=== PATIENT | male | born 1980 | race African-American/Black ===

== ENCOUNTER 2017-08-28 08:43 | Emergency (ER) | payer SELFPAY ==
[~2017-08-28] VITALS: Ht 170.2 cm; Wt 72.0 kg
[~2017-08-28 08:43] MED LIST: NO MEDS
[2017-08-28] MEDS ORDERED: IBUPROFEN 600MG TABLET PO ONE (09:45)
[2017-08-28 09:54] VITALS: BP 186/110
== END 2017-08-28 09:57 | disposition home or self-care (01) ==
LOC: ER 09:10
DX: H60.91 Unspecified otitis externa, right ear (principal); F17.200 Nicotine dependence, unspecified, uncomplicated
CPT/HCPCS: 99283